=== PATIENT | female | born 1950 | race Caucasian/White ===

== ENCOUNTER 2017-07-03 15:14 | Outpatient (CLI) | payer MEDICARE | END 2017-07-03 15:15 | disposition home or self-care (01) | LOC: BICMAMMO 15:14 | PROVIDERS: ATTEND Family Medicine | DX: Z12.31 Encounter for screening mammogram for malignant neoplasm of breast (principal); Z78.0 Asymptomatic menopausal state; M85.88 Other specified disorders of bone density and structure, other site; Z80.3 Family history of malignant neoplasm of breast; Z85.3 Personal history of malignant neoplasm of breast | CPT/HCPCS: 77063; 77067; 77080 ==

== ENCOUNTER 2017-08-18 14:13 | Emergency (ER) | payer MEDICARE ==
--- NOTE | 2017-08-18 15:16 | RAD ---
TWO VIEWS RIGHT HIP: Date: 08-18-17 Comparison: None. History: Fall, trauma, pain. FINDINGS: There is mild degenerative change involving the right hip with lateral acetabular osteophyte formatio n. No displaced fracture or dislocation. IMPRESSION: No displaced fracture or evidence of dislocation. POS: [facility]
--- NOTE | 2017-08-18 15:17 | RAD ---
THREE VIEWS RIGHT SHOULDER: Date: 08-15-17 Comparison: None. History: Fall, trauma, pain. FINDINGS: There is mild degenerative change involving the right acromioclavicular joint. There is no widening o f the AC or CC interspace. There is no displaced fracture or evidence of dislocation. IMPRESSION: No acute fracture or dislocation seen. POS: [facility]
--- NOTE | 2017-08-18 15:20 | RAD ---
FOUR VIEWS CERVICAL SPINE: Date: 08-18-17 Comparison: None. History: Fall, trauma, pain. FINDINGS: There are degenerative changes at the atlantoaxial interspace. There is no anterolisthesis or retroli sthesis noted. However, C6-7 and C7-T1 levels are not well assessed on lateral imaging secondary to a ttenuation from soft tissues. Frontal imaging demonstrates scattered multilevel bilateral facet and u ncal vertebral osteophyte formation. Open mouth odontoid view and Fuchs view are unremarkable. IMPRESSION: No acute osseous abnormality seen. However, cervical spine is not optimally assessed on the lateral e xamination inferiorly. Recommend CT examination of the cervical spine for further assessment as clini ryan warranted. POS: [facility]
[2017-08-18] MEDS ORDERED: Ibuprofen 800 MG TAB ONE (16:36)
--- NOTE | 2017-08-18 17:34 | CT ---
CT OF THE BRAIN WITHOUT CONTRAST: COMPARISON: None. HISTORY: Alzheimer's patient who fell down stairs with head trauma and headache. Possible loss of consciousne ss. TECHNIQUE: Multiple contiguous axial images were obtained in a CT of the brain without contrast. FINDINGS: There are scattered hypodensities in the subcortical and periventricular white matter, likely seconda ry to small vessel ischemic disease. No large confluent infarction is seen. There is no evidence of hydrocephalus, intracranial hemorrhage, or extraaxial fluid collection. The calvarium and overlying soft tissues are unremarkable. The visualized paranasal sinuses and mast oid air cells are well-aerated. IMPRESSION: No evidence of acute intracranial abnormality. POS: [facility]
--- NOTE | 2017-08-18 17:35 | CT ---
CT OF THE CERVICAL SPINE WITHOUT CONTRAST: COMPARISON: None. HISTORY: Fall with neck pain and possible loss of consciousness. TECHNIQUE: Multiple contiguous axial images are obtained in a CT of the cervical spine without contrast. Sagitt al and coronal reformats were performed. FINDINGS: The vertebral bodies and intervertebral disks demonstrate normal height and alignment without acute f racture or subluxation. Mild degenerative changes are seen in the cervical spine. No prevertebral s oft tissue swelling is seen. The posterior facets are well-aligned. Normal alignment of the skull base with the cervical spine is seen. IMPRESSION: No evidence of acute osseous abnormality of the cervical spine. POS: [facility]
== END 2017-08-18 18:54 | disposition home or self-care (01) ==
LOC: ERS 14:13
DX: S16.1XXA Strain of muscle, fascia and tendon at neck level, initial encounter (principal); S76.011A Strain of muscle, fascia and tendon of right hip, initial encounter; E11.9 Type 2 diabetes mellitus without complications; I10 Essential (primary) hypertension; E78.5 Hyperlipidemia, unspecified; G30.9 Alzheimer's disease, unspecified; F02.80 Dementia in other diseases classified elsewhere, unspecified severity, without behavioral disturbance, psychotic disturbance, mood disturbance, and anxiety; F41.9 Anxiety disorder, unspecified; Z79.84 Long term (current) use of oral hypoglycemic drugs; Z79.899 Other long term (current) drug therapy; W20.8XXA Other cause of strike by thrown, projected or falling object, initial encounter
CPT/HCPCS: 70450; 72040; 72125

== ENCOUNTER 2017-09-18 16:30 | Emergency (ER) | payer MEDICARE ==
[2017-09-18 17:11] LABS: #Eosinphils 0.2 thou/uL (0.0-0.7); #Lymphocytes 2.6 thou/uL (1.20-3.40); #Monocytes 0.4 thou/uL (0.11-0.59); #Neutrophils 4.8 thou/uL (1.40-6.50); %Basophils 0.6 % (0.0-1.0); %Eosinophils 2.2 % (0.0-10.0); %Lymphocytes 31.9 % (21.0-51.0); %Monocytes 5.2 % (0.0-10.0); %Neutrophils 60.1 % (42.0-75.0); Hemoglobin 13.2 g/dL (12.0-16.0); Mean Corpuscular HGB CONC 34.9 g/dL (32.0-36.0); Mean Corpuscular Hemoglobin 32.4 pg (27.0-31.0); Mean Corpuscular Volume 92.8 fl (81.0-99.0); Mean Platelet Volume 6.8 fL (7.4-10.4); Platelet Count 272 thou/uL (130-400); Red Blood Cell (RBC) Count 4.07 mill/uL (4.20-5.40)
[2017-09-18 17:32] LABS: ALT (SGPT) 25 U/L (8-55); AST (SGOT) 20 U/L (5-34); Albumin 4.2 g/dL (3.4-4.8); Alkaline Phosphatase 77 U/L (40-150); Anion Gap 12 mmol/L (10-20); BUN (Urea Nitrogen) 12 mg/dL (9.8-20.1); Bilirubin, Total 0.4 mg/dL (0.2-1.2); Calc. Creatinine Clearance 0 mL/min (70-130); Calcium 9.3 mg/dL (7.8-10.44); Carbon Dioxide 27 mmol/L (23-31); Chloride 107 mmol/L (98-107); Estimated GFR-MDRD 66; Globulin 3.2 g/dL (2.4-3.5); Glucose 103 mg/dL (80-115); Potassium 3.7 mmol/L (3.5-5.1); Protein, Total 7.4 g/dL (6.0-8.3); Sodium 142 mmol/L (136-145)
[2017-09-18 18:39] LABS: Bilirubin Negative (Negative); Blood, Urine Negative (Negative); Clarity CLEAR (Clear); Glucose, Urine (Dipstick) Negative (Negative); Leukocyte Moderate (Negative); Nitrite Negative (Negative); Protein, Urine (Dipstick) Negative (Neg-Trace); Specific Gravity, Urine 1.016 (1.002-1.036); Urobilinogen 0.2 mg/dL (0.2-1.0)
[2017-09-18 18:40] LABS: Bacteria/HPF None Seen HPF (None Seen); Hyaline Casts/LPF 0-3 HYALINE CAST LPF (0-3 Hyaline); RBC/HPF 0-3 HPF (0-3); Squamous Epithelial 0-3 HPF (0-3)
[2017-09-18] MEDS ORDERED: Ibuprofen 800 MG TAB ONE (19:02)
--- NOTE | 2017-09-18 19:19 | RAD ---
CHEST ONE VIEW LEFT RIBS THREE VIEWS 09/18/17 HISTORY: Pain. Swelling. COMPARISON: None. FINDINGS: CHEST ONE VIEW: Normal cardiac silhouette. Lungs and pleural spaces are clear. No pneumothorax or osseous abnormaliti es. LEFT RIB SERIES: No fracture. No cortical irregularity or periosteal reaction. Surgical clips are noted in the left axilla. IMPRESSION: 1. No acute cardiopulmonary process. 2. No evidence of a left rib fracture. POS: [facility]
== END 2017-09-18 20:06 | disposition home or self-care (01) ==
LOC: ERS 16:30
DX: N30.00 Acute cystitis without hematuria (principal); E11.9 Type 2 diabetes mellitus without complications; E78.5 Hyperlipidemia, unspecified; F41.9 Anxiety disorder, unspecified; I10 Essential (primary) hypertension; J42 Unspecified chronic bronchitis; Z85.3 Personal history of malignant neoplasm of breast; Z79.84 Long term (current) use of oral hypoglycemic drugs; Z79.899 Other long term (current) drug therapy
CPT/HCPCS: 36415; 80053; 81003; 81015; 85025

== ENCOUNTER 2018-04-06 18:14 | Emergency (ER) | payer MEDICARE ==
[2018-04-06 18:37] LABS: Bilirubin Negative (Negative); Blood, Urine Negative (Negative); Clarity CLEAR (Clear); Glucose, Urine (Dipstick) Negative (Negative); Leukocyte Negative (Negative); Nitrite Negative (Negative); Protein, Urine (Dipstick) Negative (Neg-Trace); Specific Gravity, Urine 1.013 (1.002-1.036); Urobilinogen 0.2 mg/dL (0.2-1.0); pH, Urine 5.5 (5.0-9.0)
[2018-04-06 18:51] LABS: #Basophils 0.1 thou/uL (0.0-0.2); #Eosinphils 0.2 thou/uL (0.0-0.7); #Lymphocytes 2.7 thou/uL (1.20-3.40); #Monocytes 0.5 thou/uL (0.11-0.59); #Neutrophils 5.7 thou/uL (1.40-6.50); %Basophils 0.9 % (0.0-1.0); %Eosinophils 2.2 % (0.0-10.0); %Lymphocytes 29.9 % (21.0-51.0); Hemoglobin 13.1 g/dL (12.0-16.0); Mean Corpuscular HGB CONC 32.4 g/dL (32.0-36.0); Mean Corpuscular Hemoglobin 30.5 pg (27.0-31.0); Mean Platelet Volume 7.4 fL (7.4-10.4); Platelet Count 299 thou/uL (130-400); RBC Distribution Width 11.6 % (11.5-14.5); Red Blood Cell (RBC) Count 4.31 mill/uL (4.20-5.40); White Blood Cell (WBC) Count 9.2 thou/uL (4.8-10.8)
[2018-04-06 19:26] LABS: ALT (SGPT) 29 U/L (8-55); AST (SGOT) 21 U/L (5-34); Albumin 4.3 g/dL (3.4-4.8); Alkaline Phosphatase 84 U/L (40-150); Anion Gap 15 mmol/L (10-20); BUN (Urea Nitrogen) 16 mg/dL (9.8-20.1); Bilirubin, Total 0.2 mg/dL (0.2-1.2); Calc. Creatinine Clearance 0 mL/min (70-130); Calcium 9.4 mg/dL (7.8-10.44); Carbon Dioxide 22 mmol/L (23-31); Chloride 105 mmol/L (98-107); Estimated GFR-MDRD 47; Globulin 3.5 g/dL (2.4-3.5); Glucose 186 mg/dL (80-115); Protein, Total 7.8 g/dL (6.0-8.3); Sodium 138 mmol/L (136-145)
[2018-04-06 19:31] LABS: CKMB 1.3 ng/mL (0-6.6); Troponin I Less than 0.010 ng/mL (< 0.028)
[2018-04-06] MEDS ORDERED: Meclizine HCl 25 MG TAB ONE (19:31)
--- NOTE | 2018-04-06 19:58 | CT ---
CT BRAIN: HISTORY: The patient is complaining of dizziness and vertigo. FINDINGS: No evidence of acute intracranial masses, hemorrhages, or strokes seen. There is an area of hypodensity in the left basal ganglia, most compatible with an old stroke. No ac rosio intracranial masses or significant interval changes seen since the previous exam. No evidence of posterior fossa abnormalities seen. IMPRESSION: 1. Cortical atrophy and deep white matter ischemic changes. 2. 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 3. No acute intracranial pathology seen. POS: [facility]
== END 2018-04-06 21:06 | disposition home or self-care (01) ==
LOC: ERS 18:14
DX: R42 Dizziness and giddiness (principal); E11.9 Type 2 diabetes mellitus without complications; E78.5 Hyperlipidemia, unspecified; I10 Essential (primary) hypertension; F41.9 Anxiety disorder, unspecified; Z79.899 Other long term (current) drug therapy; Z79.84 Long term (current) use of oral hypoglycemic drugs
CPT/HCPCS: 36415; 70450; 80053; 81003; 82553; 84484; 85025; 93005

== ENCOUNTER 2018-05-26 17:15 | Emergency (ER) | payer MEDICARE ==
[2018-05-26] MEDS ORDERED: Ketorolac Tromethamine 30 MG/ML VIAL ONE (17:59)
== END 2018-05-26 19:49 | disposition home or self-care (01) ==
LOC: ERS 17:15
DX: J02.9 Acute pharyngitis, unspecified (principal); E11.9 Type 2 diabetes mellitus without complications; E78.5 Hyperlipidemia, unspecified; J42 Unspecified chronic bronchitis; F41.0 Panic disorder [episodic paroxysmal anxiety]; I10 Essential (primary) hypertension; Z79.84 Long term (current) use of oral hypoglycemic drugs; Z79.899 Other long term (current) drug therapy
CPT/HCPCS: 87081; 87430; 96372; J1885

== ENCOUNTER 2018-08-26 10:12 | Outpatient (CLI) | payer MEDICARE ==
--- NOTE | 2018-08-26 11:15 | MMO ---
Bilateral MAMMO Bilat Screen [facility]. CLINICAL HISTORY: Patient is 68 years old and is seen for diagnostic exam. The patient has the following family history of breast cancer: sister, at age 40 and daughter, at age 42. The patient has a history of left Mastectomy in 2002 - malignant and left Excisional Biopsy in 1991 - benign. VIEWS: The views performed were: bilateral craniocaudal with tomosynthesis and bilateral mediolateral oblique with tomosynthesis. FILMS COMPARED: The present examination has been compared to prior imaging studies performed at [facility] on 05/31/2008, 08/21/2009, 08/27/2010, 09/16/2011, 10/01/2012, 03/14/2016 and 07/03/2017, and at [facility] on 11/19/2013. MAMMOGRAM FINDINGS: There are stable benign appearing calcifications seen in the right breast. There are no suspicious masses, suspicious calcifications, or new areas of architectural distortion. IMPRESSION: THERE IS NO MAMMOGRAPHIC EVIDENCE OF MALIGNANCY. A ROUTINE FOLLOW-UP MAMMOGRAM IN 1 YEAR IS RECOMMENDED. THE RESULTS OF THIS EXAM WERE SENT TO THE PATIENT. ACR BI-RADS Category 2 - Benign finding MAMMOGRAPHY NOTE: 1. A negative mammogram report should not delay a biopsy if a dominant of clinically suspicious mass is present. 2. Approximately 10% to 15% of breast cancers are not detected by mammography. 3. Adenosis and dense breasts may obscure an underlying neoplasm.
== END 2018-08-26 10:13 | disposition home or self-care (01) ==
LOC: BICMAMMO 10:12
PROVIDERS: ATTEND Family Medicine
DX: Z12.31 Encounter for screening mammogram for malignant neoplasm of breast (principal); Z80.3 Family history of malignant neoplasm of breast; Z90.12 Acquired absence of left breast and nipple; Z98.890 Other specified postprocedural states
CPT/HCPCS: 77063; 77067

== ENCOUNTER 2019-01-29 18:33 | Emergency (ER) | payer MEDICARE | END 2019-01-29 20:19 | disposition home or self-care (01) | LOC: ERS 18:33 | DX: T78.40XA Allergy, unspecified, initial encounter (principal); E11.9 Type 2 diabetes mellitus without complications; E78.5 Hyperlipidemia, unspecified; E78.00 Pure hypercholesterolemia, unspecified; I10 Essential (primary) hypertension; F41.9 Anxiety disorder, unspecified; Z85.3 Personal history of malignant neoplasm of breast | CPT/HCPCS: 99282 ==

== ENCOUNTER 2019-03-25 21:27 | Emergency (ER) | payer MEDICARE ==
--- NOTE | 2019-03-25 22:06 | RAD ---
EXAM: Chest Two Views 03/25/2019 10:03 PM HISTORY: Cough COMPARISON: Prior PA of the chest with left-sided rib series dated September 18, 2017. FINDINGS: Heart: Normal in size and contour. Pulmonary vessels: Normal. Costophrenic angles: Clear. Lungs: No acute airspace consolidation. Pneumothorax: None. Osseous structures:Intact. Additional findings: Stable surgical clips within the left axilla. IMPRESSION: No significant acute intrathoracic disease.
== END 2019-03-25 22:56 | disposition home or self-care (01) ==
LOC: ERS 21:27
DX: J20.9 Acute bronchitis, unspecified (principal); E11.9 Type 2 diabetes mellitus without complications; I10 Essential (primary) hypertension
CPT/HCPCS: 71046; 87804

== ENCOUNTER 2019-10-12 13:59 | Outpatient (CLI) | payer MEDICARE ==
--- NOTE | 2019-10-12 14:59 | MMO ---
Right Breast MAMMO Unilat Diag [facility]. CLINICAL HISTORY: Patient is 69 years old and is seen for diagnostic exam. The patient has the following family history of breast cancer: 2 sisters, at age 40 and 2 daughters, at age 42. The patient has a history of left Mastectomy in 2002 - malignant and left Excisional Biopsy in 1991 - benign. VIEWS: The views performed were: right craniocaudal with tomosynthesis; right mediolateral oblique with tomosynthesis; right mediolateral with tomosynthesis; and right exaggerated craniocaudal. FILMS COMPARED: The present examination has been compared to prior imaging studies performed at [facility] on 07/03/2017, 08/26/2018 and 10/12/2019. This study has been interpreted with the assistance of computer-aided detection. MAMMOGRAM FINDINGS: There are scattered fibroglandular densities. There are benign appearing calcifications in the right breast. There are no suspicious masses, suspicious calcifications, or new areas of architectural distortion. IMPRESSION: THERE IS NO MAMMOGRAPHIC EVIDENCE OF MALIGNANCY. A ROUTINE FOLLOW-UP MAMMOGRAM IN 1 YEAR IS RECOMMENDED. THE RESULTS OF THIS EXAM WERE SENT TO THE PATIENT. ACR BI-RADS Category 2 - Benign finding MAMMOGRAPHY NOTE: 1. A negative mammogram report should not delay a biopsy if a dominant of clinically suspicious mass is present. 2. Approximately 10% to 15% of breast cancers are not detected by mammography. 3. Adenosis and dense breasts may obscure an underlying neoplasm. Reported by: NOREEN CASILLAS MD Electonically Signed: [id number]
--- NOTE | 2019-10-12 15:19 | ULT ---
LIMITED RIGHT BREAST ULTRASOUND: HISTORY: Pain in the right breast at the 1 o'clock and the 11 o'clock positions. FINDINGS: Correlation is made with the mammogram of the same date. Sonographic evaluation of the 11 o'clock position of the right breast demonstrates no abnormality. A t the 1 o'clock position of the right breast, there is a 3 mm cyst. IMPRESSION: BIRADS category 2 - benign findings. Return to annual mammographic screening.
== END 2019-10-12 14:00 | disposition home or self-care (01) ==
LOC: BICMAMMO 13:59
PROVIDERS: ATTEND Family Medicine
DX: N64.4 Mastodynia (principal)
CPT/HCPCS: 76642; 77065; G0279; 77066

== ENCOUNTER 2021-01-17 07:44 | Outpatient (CLI) | payer MEDICARE, OTHER | END 2021-01-17 07:45 | disposition home or self-care (01) | LOC: BICRAD 07:44 | PROVIDERS: ATTEND Internal Medicine Critical Care Medicine | DX: R06.00 Dyspnea, unspecified (principal) | CPT/HCPCS: 71046 ==

== ENCOUNTER 2021-05-21 14:53 | Outpatient (CLI) | payer MEDICARE, OTHER | END 2021-05-21 14:54 | disposition home or self-care (01) | LOC: BICMAMMO 14:53 | PROVIDERS: ATTEND Family Medicine | DX: Z12.31 Encounter for screening mammogram for malignant neoplasm of breast (principal); Z80.3 Family history of malignant neoplasm of breast; Z85.3 Personal history of malignant neoplasm of breast; Z91.89 Other specified personal risk factors, not elsewhere classified; Z90.12 Acquired absence of left breast and nipple | CPT/HCPCS: 77063; 77067 ==

== ENCOUNTER 2022-04-24 12:48 | Emergency (ER) | payer OTHER, SELFPAY ==
[2022-04-24] MEDS ORDERED: Acetaminophen 500 MG TAB ONE (13:53)
== END 2022-04-24 14:55 | disposition home or self-care (01) ==
LOC: ERS 12:48
DX: S42.252A Displaced fracture of greater tuberosity of left humerus, initial encounter for closed fracture (principal); E11.9 Type 2 diabetes mellitus without complications; I10 Essential (primary) hypertension; E78.00 Pure hypercholesterolemia, unspecified; W01.0XXA Fall on same level from slipping, tripping and stumbling without subsequent striking against object, initial encounter
CPT/HCPCS: 72170

== ENCOUNTER 2022-09-09 15:10 | Outpatient (CLI) | payer MEDICARE | END 2022-09-09 15:11 | disposition home or self-care (01) | LOC: BICMAMMO 15:10 | PROVIDERS: ATTEND Internal Medicine | DX: Z12.31 Encounter for screening mammogram for malignant neoplasm of breast (principal); Z13.820 Encounter for screening for osteoporosis; R92.1 Mammographic calcification found on diagnostic imaging of breast; Z90.12 Acquired absence of left breast and nipple; Z91.89 Other specified personal risk factors, not elsewhere classified; Z78.0 Asymptomatic menopausal state; Z80.3 Family history of malignant neoplasm of breast | CPT/HCPCS: 77063; 77067; 77080 ==

== ENCOUNTER 2023-03-22 20:16 | Emergency (ER) | payer OTHER, MEDICARE ==
[2023-03-22] MEDS ORDERED: Bacitracin 1 PK ONE (21:42)
== END 2023-03-22 22:18 | disposition home or self-care (01) ==
LOC: ERS 20:16
DX: S92.352A Displaced fracture of fifth metatarsal bone, left foot, initial encounter for closed fracture (principal); W19.XXXA Unspecified fall, initial encounter
CPT/HCPCS: 29515

== ENCOUNTER 2023-11-06 13:27 | Outpatient (CLI) | payer MEDICARE | END 2023-11-06 13:28 | disposition home or self-care (01) | LOC: BICMAMMO 13:27 | PROVIDERS: ATTEND Internal Medicine | DX: Z12.31 Encounter for screening mammogram for malignant neoplasm of breast (principal); M85.851 Other specified disorders of bone density and structure, right thigh; M85.852 Other specified disorders of bone density and structure, left thigh; Z80.3 Family history of malignant neoplasm of breast; Z91.89 Other specified personal risk factors, not elsewhere classified; Z85.3 Personal history of malignant neoplasm of breast; Z90.12 Acquired absence of left breast and nipple | CPT/HCPCS: 77063; 77067; 77080 ==

== ENCOUNTER 2025-01-25 20:30 | Emergency (ER) | payer MEDICARE ==
[2025-01-25] MEDS ORDERED: Cyclobenzaprine 10 MG TAB ONE (21:26)
[2025-01-25] MEDS ORDERED: Acetaminophen 500 MG TAB ONE (22:41)
[2025-01-25 22:52] LABS: #Basophils 0.07 10x3/uL (0.0-0.2); #Eosinophils 0.68 10x3/uL (0.0-0.7); #Monocytes 0.60 10x3/uL (0.11-0.59); #Neutrophils 4.35 10x3/uL (1.40-6.50); %Basophils 0.7 % (0.0-1.0); %Eosinophils 7.0 % (0.0-10.0); %Lymphocytes 41.2 % (21.0-51.0); %Monocytes 6.2 % (0.0-10.0); %Neutrophils 44.6 % (42.0-75.0); Hematocrit 34.2 % (36.0-47.0); Hemoglobin 10.9 g/dL (12.0-16.0); Mean Corpuscular Hemoglobin 29.5 pg (27.0-31.0); Mean Corpuscular Volume 92.4 fL (78.0-98.0); Platelet Count 255 10x3/uL (130-400); Red Blood Cell (RBC) Count 3.70 mill/uL (4.20-5.40); White Blood Cell (WBC) Count 9.74 10x3/uL (4.8-10.8)
[2025-01-25 23:14] LABS: ALT (SGPT) 25 U/L (Less than 34); AST (SGOT) 29 U/L (11-34); Albumin 3.8 g/dL (3.1-4.5); Alkaline Phosphatase 74 U/L (40-110); Anion Gap 15 mmol/L (10-20); BUN (Urea Nitrogen) 14 mg/dL (9.8-20.1); Bilirubin, Total 0.1 mg/dL (0.3-1.2); Calc. Creatinine Clearance 0 mL/min (70-130); Calcium 9.0 mg/dL (7.8-10.44); Carbon Dioxide 23 mmol/L (23-31); Chloride 109 mmol/L (98-107); Globulin 2.7 g/dL (2.4-3.5); Glucose 91 mg/dL (83-110); Potassium 4.1 mmol/L (3.5-5.1); Sodium 143 mmol/L (136-145)
== END 2025-01-26 00:20 | disposition home or self-care (01) ==
LOC: ERS 20:30
DX: M25.542 Pain in joints of left hand (principal); I89.0 Lymphedema, not elsewhere classified; I10 Essential (primary) hypertension; E11.9 Type 2 diabetes mellitus without complications; E78.00 Pure hypercholesterolemia, unspecified; Z79.899 Other long term (current) drug therapy; Z55.6 Problems related to health literacy; Z79.84 Long term (current) use of oral hypoglycemic drugs; Z79.51 Long term (current) use of inhaled steroids
CPT/HCPCS: 80053; 85025; 86141